=== PATIENT | female | born 1955 | race Caucasian/White ===

== ENCOUNTER 2024-10-31 12:16 | Emergency (ER) | payer MEDICARE, OTHER ==
[~2024-10-31] VITALS: Ht 165.1 cm; Wt 59.4 kg
[2024-10-31 12:28] VITALS: BP 145/84
[2024-10-31 12:52] LABS: BASOPHILS ABSOLUTE AUTO 0.03 K/mm3 (0.00-0.23); BASOPHILS PERCENT AUTO 0 % (0-2); EOSINOPHILS ABSOLUTE AUTO 0.21 K/mm3 (0.00-0.68); EOSINOPHILS PERCENT AUTO 2 % (0-6); Hematocrit 43.8 % (33.0-51.0); Hemoglobin 14.5 g/dL (11.5-16.0); IMMATURE GRAN ABSOLUTE AUTO 0.05 K/mm3 (0.00-0.10); IMMATURE GRAN PERCENT AUTO 0 % (0-1); LYMPHOCYTES ABSOLUTE AUTO 4.07 K/mm3 (0.84-5.20); LYMPHOCYTES PERCENT AUTO 31 % (21-46); MONOCYTES ABSOLUTE AUTO 0.81 K/mm3 (0.16-1.47); MONOCYTES PERCENT AUTO 6 % (4-13); Mean Corpuscular HGB Conc 33.1 g/dL (31.5-36.5); Mean Corpuscular Volume 98 fL (80-100); NEUTROPHILS ABSOLUTE AUTO 7.84 K/mm3 (1.96-9.15); NEUTROPHILS PERCENT AUTO 60 % (41-73); NRBC ABSOLUTE 0.00 K/mm3 (0.00-0.02); NRBC Auto 0.0 /100 WBC (0.0-0.2); Platelet Count 274 K/mm3 (150-400); RDW Coefficient Variation 14.0 % (11.7-14.2); RDW Standard Deviation 50.8 fL (35.1-46.3)
[2024-10-31 13:22] LABS: Alanine Aminotransfer (ALT/SGP 69.0 U/L (12-78); Albumin, Blood 3.5 g/dL (3.4-5.0); Albumin/Globulin Ratio 1.0 (0.8-1.8); Anion Gap 7.0 mmol/L (3-11); Aspartate Aminotrans (AST/SGOT 32.0 U/L (12-37); Bilirubin, Total 0.4 mg/dL (0.1-1.0); Blood Urea Nitrogen 16.0 mg/dL (8-24); CO2, Blood 29.0 mmol/L (21-32); Calcium, Blood 9.7 mg/dL (8.5-10.1); Chloride, Blood 106.0 mmol/L (98-108); Creatinine, Blood 0.92 mg/dL (0.40-1.00); Globulin, Blood 3.5 g/dL (2.2-4.0); Glucose, Blood 97.0 mg/dL (70-99); Potassium, Blood 4.1 mmol/L (3.5-5.5); Sodium, Blood 138.0 mmol/L (136-145); Total Protein, Blood 7.0 g/dL (6.4-8.2)
== END 2024-10-31 19:05 | disposition home or self-care (01) ==
LOC: ER 12:16
PROVIDERS: Emergency Medicine
DX: M54.2 Cervicalgia (principal); Z88.5 Allergy status to narcotic agent
CPT/HCPCS: 70491; 72170; 80053; 85025; 99284-25; Q9967

== ENCOUNTER 2024-11-30 08:06 | Day surgery (SDC) | payer MEDICARE, OTHER ==
[~2024-11-30] VITALS: Ht 165.1 cm; Wt 58.7 kg
[~2024-11-30 08:06] MED LIST: Glycopyrrolate 0.2 MG/ML 1MLVIAL ONE; Ondansetron HCl 2 MG / ML 2ML Vial ONE; ePHEDrine Sulfate 50 MG/ML 1ML Injection ONE
[2024-11-30] MEDS ORDERED: FAMO20 (08:41)
[2024-11-30] MEDS ORDERED: ERGO400 (08:41)
[2024-11-30] MEDS ORDERED: Crestor40 MG (08:41)
[2024-11-30] MEDS ORDERED: ZINC15 (08:41)
[2024-11-30] MEDS ORDERED: LATA.005SO (08:41)
[2024-11-30] MEDS ORDERED: PANT40 (08:41)
[2024-11-30 10:52] VITALS: BP 106/66
== END 2024-11-30 10:55 | disposition home or self-care (01) ==
LOC: ORSCSDS 08:06
PROVIDERS: Surgery
PROC: 0DBP8ZX Excision of Rectum, Via Natural or Artificial Opening Endoscopic, Diagnostic (ICD-10-PCS; principal; 2024-11-30 09:30)
DX: Z12.11 Encounter for screening for malignant neoplasm of colon (principal); K62.1 Rectal polyp; Z86.0100 Personal history of colon polyps, unspecified; Z83.719 Family history of colon polyps, unspecified; F32.A Depression, unspecified; K21.9 Gastro-esophageal reflux disease without esophagitis; E78.5 Hyperlipidemia, unspecified; J45.909 Unspecified asthma, uncomplicated; Z79.899 Other long term (current) drug therapy; F17.210 Nicotine dependence, cigarettes, uncomplicated
CPT/HCPCS: 88305; J0461; J2003; J2405; J2704; J7120; Q9968